=== PATIENT | female | born 2000 | race Caucasian/White ===

== ENCOUNTER 2025-04-08 17:39 | Emergency (ER) | payer BC, MEDICAID, SELFPAY ==
--- NOTE | 2025-04-08 17:45 | XRR_ITS ---
PROCEDURE INFORMATION: Exam: XR Left Knee Exam date and time: 04/08/2025 5:55 PM Age: 24 years old Clinical indication: Pain; Knee; Left; Prior surgery; Surgery date: 6+ months; Surgery type: Acl- menicus, patella TECHNIQUE: Imaging protocol: Radiologic exam of the left knee. Views: 3 views. COMPARISON: No relevant prior studies available. FINDINGS: Bones/joints: No acute fracture or traumatic malalignment. Moderate knee joint effusion. There are postsurgical changes from prior ACL repair. Moderate degenerative changes of the knee joint. Soft tissues: Normal. XR/XR knee LT 3V* [id number] IMPRESSION: As above.
--- OUTSIDE RECORDS SUMMARY | 2025-04-08 17:49 | XMS_ITS | Encounter Summary ---
Author Organization [facility] Address [address] [place] [address] Care Team Providers Care Sensitizer Name Role Phone Radha Swan DO Primary Care Provider +1- [phone] Encounter Details Date Type Department Care Team (Late st Contact Info) Description 03/25/2025 Results Follow-Up [facility] [address] [place] [address] Saud Marie ACTIVITY THERAPY TEACHER [address] [place] [address] HEPATIC FUNCTION PANEL Social History Tobacco Use Types Packs/Day Years Used Date Smoking Tobacco: Never Alcohol Use Standard Drinks/Week Comments Never 0 (1 standard drink = 0.6 oz pur e alcohol) Comments Unknown Sex and Gender Information Value Date Recorded Sex Assigned at Female 02/24/2025 6:47 PM CDT Legal Sex Female 8:48 PM CDT Gender Identity Female 02/24/2025 6:47 PM CDT Sexual Orientation Not on file documented as of this encounter Plan of Treatment Upcoming Encounters Date Type Department Care Team (Late st Contact Info) Description 06/25/2025 12:20 PM SPRINKLER WORKER Office Visit [facility] [address] [place] [address] Saud Marie FNP [address] [place] [address] documented as of this encounter Visit Diagnoses Not on filedocumented in this encounter Care Teams Sensitizer Relationship Specialty Start Date End Date Radha Swan DO [address] [place] [address] PCP - General Family Practice 02/24/25 documented as of this encounter
--- OUTSIDE RECORDS SUMMARY | 2025-04-08 17:49 | XMS_ITS | Clinical Summary ---
Author Organization [facility] Address [address] [place] [address] Care Team Providers Care Adobe Block Maker Name Role Phone Radha Swan Primary Care Provider Allergies No known active allergies Medications triamcinolone acetonide (KENALOG) 0.5 % CreamIndication s:Flexural eczema Apply to affected area 2 times daily. 60 Gram 2 Active tirzepatide, weight loss, (Zepbound) 2.5 mg/0.5 mL Pen InjectorIndicat ions:Obesity (BMI 35.0-39.9 without comorbidity) Inject 0.5 mL (2.5 mg) by subcutaneous injection every 7 days. 6 mL 3 Active Active Problems Problem Noted Date Diagnosed Date Obesity (BMI 35.0-39.9 without comorbidity) 02/10 Flexural eczema 02/24/2025 Encounters Date Type Department Care Team Description 04/01/2025 Patient Self-Triage [facility] [address] [place] [address] 03/25/2025 Results Follow-Up [facility] [address] [place] [address] Saud Marie FNP HEPATIC FUNCTION PANEL 03/24/2025 12:00 PM SENIOR DATA SCIENTIST Office Visit [facility] [address] [place] [address] Saud Marie FNP Obesity (BMI 35.0-39.9 without comorbidity) (Primary Dx); Elevated LFTs 03/03/2025 External Device Data STL ABSTRACTION Provider, Abstract 03/03/2025 External Device Data STL ABSTRACTION Provider, Abstract 03/02/2025 External Device Data STL ABSTRACTION Provider, Abstract 02/25/2025 Results Follow-Up [facility] [address] [place] [address] Saud Marie FNP LIPID PANEL, TSH, HEMOGLOBIN A1C, Additional followed-up results: 2 02/24/2025 3:40 PM CDT Office Visit [facility] [address] [place] [phone] Saud Marie FNP Obesity (BMI 35.0-39.9 without comorbidity) (Primary Dx); Flexural eczema; Skin tag from Last 3 Months Family History Medical History Relation Name Comments Kidney Disease Father Cervical Cancer Mother Relation Name Status Comments Father Mother Social History Tobacco Use Types Packs/Day Years Used Date Smoking Tobacco: Never Tobacco Cessation:Counseling Given: Not Answered Alcohol Use Standard Drinks/Week Comments Never 0 (1 standard drink = 0.6 oz pur e alcohol) Comments Unknown Sex and Gender Information Value Date Recorded Sex Assigned at Female 02/24/2025 6:47 PM CDT Legal Sex Female 8:48 PM CDT Gender Identity Female 02/24/2025 6:47 PM CDT Sexual Orientation Not on file Last Filed Vital Signs Vital Sign Reading Time Taken Comments Blood Pressure 120/80 03/24/2025 11:57 AM SENIOR DATA SCIENTIST Pulse 95 03/24/2025 11:57 AM SENIOR DATA SCIENTIST Temperature 36.1 C (97 F) 03/24/2025 11:57 AM SENIOR DATA SCIENTIST Respiratory Rate 18 03/24/2025 11:5 7 AM SENIOR DATA SCIENTIST Oxygen Saturation 98% 03/24/2025 11: 57 AM SENIOR DATA SCIENTIST Inhaled Oxygen Concentration - - Weight 108.6 kg (239 lb 6.4 oz) 025 11:57 AM SENIOR DATA SCIENTIST Height 170.2 cm (5' 7 ) 03/24/2025 11:5 7 AM SENIOR DATA SCIENTIST Body Mass Index 37.5 03/24/2025 11:57 AM SENIOR DATA SCIENTIST Plan of Treatment Upcoming Encounters Date Type Department Care Team (Late st Contact Info) Description 06/25/2025 12:20 PM SENIOR DATA SCIENTIST Office Visit [facility] [address] [facility] [place] [phone] Saud Marie, REGISTRY RN [address] [place] [address] Health Maintenance Due Date Last Done Comments CHLAMYDIA SCREENING (ANNUAL) 11-24 YEARS 2012 HPV VACCINES (1 - 3-dose series) 2016 DTAP/TDAP/TD VACCINES (1 - Tdap) 2020 HEPATITIS B VACCINES (1 of 3 - 19+ 3-dose series) 08/13 Preventative Visit-Managed Medicaid 2020 CERVICAL CANCER SCREENING 2022 HPV/Cotest (21-29) 2022 PAP SMEAR 2022 INFLUENZA VACCINE (#1) 2024 Procedures Procedure Name Priority Date/Time Associated Diagnosis Comments HEPATIC FUNCTION PANEL Routine 12:40 PM SENIOR DATA SCIENTIST Elevated LFTs CBC WITH DIFFERENTIAL Routine 02/24/2025 4:17 PM CDT Obesity (BMI 35.0-39.9 without comorbidity) COMPREHENSIVE METABOLIC PANEL Routine 02/24/2025 4:17 PM CDT Obesity (BMI 35.0-39.9 without comorbidity) HEMOGLOBIN A1C Routine 02/24/2025 4:17 PM CDT Obesity (BMI 35.0-39.9 without comorbidity) TSH Routine 02/24/2025 4:17 PM CDT Obesity (BMI 35.0-39.9 without comorbidity) LIPID PANEL Routine 02/24/2025 4:17 PM CDT Obesity (BMI 35.0-39.9 without comorbidity) from Last 3 Months Results * HEPATIC FUNCTION PANEL (03/24/2025 12:40 PM SENIOR DATA SCIENTIST) TOTAL PROTEIN 7.0 6.1 - 8.1 g/dL [facility] ALBUMIN 4.2 3.6 - 5.1 g/dL [facility] GLOBULIN 2.8 1.9 - 3.7 g/dL (calc) [facility] ALBUMIN/GLOBULIN RATIO 1.5 1.0 - 2.5 (calc) [facility] BILIRUBIN TOTAL 0.6 0.2 - 1.2 mg/dL [facility] BILIRUBIN DIRECT 0.1 < OR = 0.2 mg/dL [facility] BILIRUBIN INDIRECT 0.5 0.2 - 1.2 mg/dL (calc) [facility] ALKALINE PHOSPHATASE 58 31 - 125 U/L [facility] AST 16 10 - 30 U/L [facility] ALT 23 6 - 29 U/L [facility] Comment: FASTING:UNKNOWN FASTING: UNKNOWN Test Performed at: [facility] [address] Shane Johnson MD Blood 03/24/2025 12:4 0 PM SENIOR DATA SCIENTIST 03/24/2025 12:40 PM SENIOR DATA SCIENTIST us Saud Marie REGISTRY RN CHEMISTRY ORDERABLES Final Result [facility] [phone] [facility] [address] * CBC WITH DIFFERENTIAL (02/24/2025 4:17 PM CDT) WBC 7.4 3.8 - 10.8 Thousand/u L [facility] RBC 4.97 3.80 - 5.10 Million/uL [facility] HEMOGLOBIN 15.1 11.7 - 15.5 g/dL [facility] HEMATOCRIT 44.6 35.0 - 45.0 % [facility] MCV 89.7 80.0 - 100.0 fL [facility] MCH 30.4 27.0 - 33.0 pg [facility] MCHC 33.9 32.0 - 36.0 g/dL [facility] Comment: For adults, a slight decrease in the calculated MCHC value (in the range of 30 to 32 g/dL) is most likely not clinically significant; however, it should be interpreted with caution in correlation with other red cell parameters and the patient's clinical condition. RDW 13.1 11.0 - 15.0 % [facility] PLATELETS 343 140 - 400 Thousand/u L [facility] MPV 8.7 7.5 - 12.5 fL [facility] NEUTROPHIL ABSOLUTE 4,240 1,500 - 7,800 cells/uL [facility] LYMPHOCYTE ABSOLUTE 2,375 850 - 3,900 cells/uL [facility] MONOCYTE ABSOLUTE 525 200 - 950 cells/uL [facility] EOSINOPHIL ABSOLUTE 207 15 - 500 cells/uL [facility] BASOPHILS ABSOLUTE 52 0 - 200 cells/uL [facility] NEUTROPHIL 57.3 % [facility] LYMPHOCYTES 32.1 % [facility] MONOCYTE 7.1 % [facility] EOSINOPHILS 2.8 % [facility] BASOPHILS 0.7 % [facility] Comment: Test Performed at: [facility] [address] [place] [phone] Shane Johnson MD Blood 02/24/2025 4:17 PM CDT 02/25/2025 2:52 AM CDT Saud Marie REGISTRY RN HEMATOLOGY ORDERABLES Payton l Result [facility] [phone] [facility] [address] [place] [address] * TSH (02/24/2025 4:17 PM CDT) TSH 3.50 mIU/L [facility] Comment: Reference Range > or = 20 Years 0.40-4.50 Ranges First trimester 0.26-2.66 Second trimester 0.55-2.73 Third trimester 0.43-2.91 Test Performed at: [facility] [address] [place] [address] Shane Johnson MD Blood 02/24/2025 4:17 PM CDT 02/25/2025 2:52 AM CDT Saud Marie [facility] CHEMISTRY ORDERABLES Final Result Performing Organization Address [facility]/ZIP Co de Phone Number [facility] [phone] [facility] [address] [address] [place] [address] * HEMOGLOBIN A1C (02/24/2025 4:17 PM CDT) HEMOGLOBIN A1C 4.9 <5.7 % [facility] Comment: For the purpose of screening for the presence of diabetes: <5.7% Consistent with the absence of diabetes 5.7-6.4% Consistent with increased risk for diabetes (prediabetes) > or =6.5% Consistent with diabetes This assay result is consistent with a decreased risk of diabetes. Currently, no consensus exists regarding use of hemoglobin A1c for diagnosis of diabetes in children. According to [place] Diabetes Association (ADA) guidelines, hemoglobin A1c <7.0% represents optimal control in non- diabetic patients. Different metrics may apply to specific patient populations. Standards of Medical Care in Diabetes(ADA). ESTIMATED AVERAGE GLUCOSE (MG/DL) 94 mg/dL [facility] ESTIMATED AVERAGE GLUCOSE (MMOL/L) 5.2 mmol/L [facility] Comment: Test Performed at: [facility] [place] [address] Shane Johnson MD Blood 02/24/2025 4:17 PM CDT 02/25/2025 2:52 AM CDT Saud Marie [facility] CHEMISTRY ORDERABLES Final Result Performing Organization Address City/[facility]/ZIP Co de Phone Number [facility] [phone] [facility] [address] [place] [address] * (ABNORMAL) LIPID PANEL (02/24/2025 4:17 PM CDT) CHOLESTEROL 225(H) <200 mg/dL [facility] HDL 36(L) > OR = 50 mg/dL [facility] TRIGLYCERIDE 272(H) <150 mg/dL [facility] Comment: If a non-fasting specimen was collected, consider repeat triglyceride testing on a fasting specimen if clinically indicated. Gaston et al. J. of Clin. Lipidol. 2015;9:129-169. LDL CALCULATED 147(H) mg/dL (calc) [facility] Comment: Reference range: <100 Desirable range <100 mg/dL for primary prevention; <70 mg/dL for patients with CHD or diabetic patients with > or = 2 CHD risk factors. LDL-C is now calculated using the Patel-Leesa calculation, which is a validated novel method providing better accuracy than the Friedewald equation in the estimation of LDL-C. Patel MARTINEZ et al. ROSE. 2013;310(19): 3026-4727 (http://education.FiftyFiver/faq/GZT725) CHOL/HDL RATIO 6.3(H) <5.0 (calc) [facility] NON-HDL CHOLESTEROL 189(H) <130 mg/dL (calc) [facility] Comment: For patients with diabetes plus 1 major ASCVD risk factor, treating to a non-HDL-C goal of <100 mg/dL (LDL-C of <70 mg/dL) is considered a therapeutic option. Test Performed at: [facility] [address] [place] [address] Shane Johnson MD Blood 02/24/2025 4:17 PM CDT 02/25/2025 2:52 AM CDT us Saud Marie REGISTRY RN CHEMISTRY ORDERABLES Final Result [facility] [phone] [facility] [address] [place] [address] * (ABNORMAL) COMPREHENSIVE METABOLIC PANEL (02/24/2025 4:17 PM CDT) GLUCOSE 87 65 - 99 mg/dL [facility] Comment: Fasting reference interval BUN 8 7 - 25 mg/dL [facility] CREATININE 0.88 0.50 - 0.96 mg/dL [facility] GFR 95 > OR = 60 mL/min/1. 73m2 [facility] BUN/CREAT RATIO SEE NOTE: 6 - 22 (calc) [facility] Comment: Not Reported: BUN and Creatinine are within reference range. SODIUM 137 135 - 146 mmol/L [facility] POTASSIUM 4.1 3.5 - 5.3 mmol/L [facility] CHLORIDE 103 98 - 110 mmol/L [facility] CO2 28 20 - 32 mmol/L [facility] CALCIUM 9.3 8.6 - 10.2 mg/dL [facility] TOTAL PROTEIN 7.4 6.1 - 8.1 g/dL [facility] ALBUMIN 4.5 3.6 - 5.1 g/dL [facility] GLOBULIN 2.9 1.9 - 3.7 g/dL (calc) [facility] ALBUMIN/GLOBULIN RATIO 1.6 1.0 - 2.5 (calc) [facility] BILIRUBIN TOTAL 0.4 0.2 - 1.2 mg/dL [facility] ALKALINE PHOSPHATASE 77 31 - 125 U/L [facility] AST 20 10 - 30 U/L [facility] ALT 35(H) 6 - 29 U/L [facility] Comment: Test Performed at: [facility] [address] [place] [address] [place] [address] Shane Johnson MD Blood 02/24/2025 4:17 PM CDT 02/25/2025 2:52 AM CDT Sadu Marie REGISTRY RN CHEMISTRY ORDERABLES Final Result [facility] [phone] [facility] [id number] [phone] from Last 3 Months Insurance [facility] MEDICAID Care Teams Adobe Block Maker Relationship Specialty Start Date End Date Radha Swan DO [address] [place] [address] PCP - General Family Practice 02/24/25
--- OUTSIDE RECORDS SUMMARY | 2025-04-08 17:49 | XMS_ITS | Encounter Summary ---
Author Organization [facility] Address [address] [place] [address] Care Team Providers Care Envelope Stuffer Name Role Phone Radha Swan DO Primary Care Provider +1- [phone] Encounter Details Date Type Department Care Team (Late st Contact Info) Description 04/01/2025 Patient Self-Triage [facility] [address] [place] [place] [address] Social History Tobacco Use Types Packs/Day Years [...] st Contact Info) Description 06/25/2025 12:20 PM FAST FOOD COOK Office Visit [facility] [place] [address] [place] [address] Saud Marie FNP [address] [place] [address] documented as of this encounter Visit Diagnoses Not on filedocumented in this encounter Care Teams Envelope Stuffer Relationship Specialty Start Date End Date Radha Swan DO [address] [place] [address] PCP - General Family Practice 02/24/25 documented as of this encounter
--- OUTSIDE RECORDS SUMMARY | 2025-04-08 17:49 | XMS_ITS | Encounter Summary ---
Author Organization [facility] Address [address] [place] [address] Care Team Providers Care Lamp Developer Name Role Phone Radha Swan DO Primary Care Provider +1- [phone] Encounter Details Date Type Department Care Team (Late st Contact Info) Description 02/25/2025 Results Follow-Up [facility] [address] [place] [address] Saud Marie [facility] [address] [place] [address] LIPID PANEL, TSH, HEMOGLOBIN A1C, Additional followed-up results: 2 Social History Tobacco Use Types Packs/Day Years [...] st Contact Info) Description 06/25/2025 12:20 PM ELECTROTHERAPIST Office Visit [facility] [address] [place] [address] Saud Marie FNP [address] [place] [address] documented as of this encounter Visit Diagnoses Not on filedocumented in this encounter Care Teams Lamp Developer Relationship Specialty Start Date End Date Radha Swan DO [address] [place] [address] PCP - General Family Practice 02/24/25 documented as of this encounter
[2025-04-08 17:52] VITALS: BP 104/87; PULSE 81; RESP 17; TEMP 36.4; O2SAT 100; BMI 36.5
--- NOTE | 2025-04-08 17:55 | W.ED.EXTPRO ---
HPI - Extremity Problem General: Chief complaint: Extremity Injury, Lower Stated complaint: L knee Can't bend Swelling Painful Time Seen by Provider: 04/08/25 17:55 History of Present Illness: 24-year-old female complains of left knee pain. No trauma has had previous surgeries to the left knee. Woke up this morning with pain and has difficulty bending the knee she notes most of the discomfort is when she tries to go uphill or upstairs she can walk on it and bear weight without difficulty no recent trauma or falls multiple previous surgeries in [place] she has recently moved here does not see an orthopedist in this area. Associated symptoms: Deny chest pain, fever(s) or rash Related Data Previous Rx's ?Medication ?Instructions ?Recorded diclofenac sodium 75 mg 75 mg PO Q12H PRN pain #20 tabs 04/08/25 tablet,delayed release Allergies Allergy/AdvReac Type Severity Reaction Status Date / Time No Known Allergies Allergy Verified 04/08/25 17:54 Review of Systems Const: Denies: fever(s) or chills Card: Denies: chest pain Resp: Denies: dyspnea GI: Denies: abdominal pain : Denies: dysuria, urinary frequency or urinary urgency Musc: Reports: joint pain; Denies: neck pain or back pain Skin/Breast: Denies: rash Physical Exam Narrative: EXAM NARRATIVE: Examination left knee scars from previous surgeries some chronic swelling no acute edema no effusion. No induration of the skin no deformity no lacerations or puncture wounds. Drawer and Krzysztof's test are negative no significant deformity with varus or valgus stress. Course Vital Signs: Vital signs: Vital Signs Temperature 97.5 F L 04/08/25 17:52 Pulse Rate 81 04/08/25 17:52 Respiratory Rate 17 04/08/25 17:52 Blood Pressure 104/87 04/08/25 17:52 Pulse Oximetry 100 04/08/25 17:52 Oxygen Delivery Me thod Room Air 04/08/25 17:52 MDM - Extremity (Nontraumatic) Medical Decision Making Medical decision making Social determinants: Recently moved to the area has not established with a physician No old records available at this time I reviewed the patient's current home meds: No current home meds Alternate historians: None Differential diagnosis Meniscus injury versus cruciate ligament injury versus collateral ligament injury versus knee pain related to previous surgeries Lab Review: None Imaging: X-ray of the left knee no acute fractures changes from previous surgeries and significant flattening of the tibial plateau especially for age Assessment of risk: Level of risk: Low Hospitalization considerations: Hospitalization not considered no acute injury/no fractures/no traumatic injuries Reexamination: Structurally knee is stable Assessment and plan: Discharge patient home on anti-inflammatories weightbearing as tolerated avoid going up stairs or up inclines and referred to the orthopedic clinic use diclofenac as needed XR interpretation done by ED provider, pending radiology final review ED provider radiology interpretation(s): Flattening of the tibial plateau there is hardware I suspect is associated with a tendon repair no hardware in the bones itself. No acute fracture. Discharge Plan Discharge Patient Disposition: Home Clinical Impression: Acute pain of left knee Condition: Stable Prescriptions: New diclofenac sodium 75 mg tablet,delayed release (DR/EC) 75 mg PO Q12H PRN (Reason: pain) Qty: 20 0RF Discharge Orders: Discharge ED (Routine); Ordered 04/08/25 Ordered By: Chung Vargas Discharge Diet: Usual diet Discharge Activity: Increase activity as tolerated Patient Instructions: Opioid Safety, Pain Management, Patient Portal & Claudia Instructions Activity Restrictions/Additional Instructions: Thank you for choosing [facility] for your healthcare needs today. It is very important that you follow up as instructed or that you return to the Emergency Department should you have concerns or if your condition changes or worsens in any way. Emergency department visits are focused on emergent conditions, in some cases you may require further evaluation on an outpatient basis. You are seen in the emergency room with complaints of left knee pain. Based on the history you gave suspect you may have a meniscus injury or tear. Avoid heavy weightbearing activities avoid climbing stairs or inclines if at all possible. Did give the anti-inflammatories. You can take 1 every 12 hours as needed. digital project manager will make arrangements for you to follow-up with the orthopedic clinic. (Please note that included in your discharge packet is information concerning opioid safety and pain management. This information is given to all patients were discharged from the ER regardless of their discharge diagnosis or the medicines they usually take or are prescribed.) Print Language: Micronesian Coding Level of Care Code ED Business Assistant for Sulema Burks
--- NOTE | 2025-04-08 18:30 | DCPLANNER ---
messaged ortho for er f/u
== END 2025-04-08 18:32 | disposition home or self-care (01) ==
PROVIDERS: Emergency Provider Family Medicine
DX: M25.562 Pain in left knee (principal)
CPT/HCPCS: 73562; 99283

== ENCOUNTER → 2025-04-27 08:59 | Outpatient (BNVA) | payer BC, MEDICAID, SELFPAY | PROVIDERS: Visit Provider Physician Assistant | DX: M25.562 Pain in left knee (principal) | CPT/HCPCS: 73560; 73565 ==

== ENCOUNTER 2025-04-27 10:28 | Outpatient (CLI) | payer BC, MEDICAID, SELFPAY | END 2025-04-27 10:29 | disposition home or self-care (01) | LOC: SPT 10:28 | PROVIDERS: Visit Provider Physician Assistant | DX: Z46.89 Encounter for fitting and adjustment of other specified devices (principal); M25.562 Pain in left knee | CPT/HCPCS: L1812 ==